=== PATIENT | female | born 2000 | race American Indian/Alaskan Native ===

== ENCOUNTER 2021-06-13 13:10 | Emergency (ER) | payer OTHER ==
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
[2021-06-13 18:43] VITALS: BP 114/63
== END 2021-06-13 18:47 | disposition home or self-care (01) ==
LOC: ED 13:10
DX: R04.0 Epistaxis (principal); M79.662 Pain in left lower leg; M25.571 Pain in right ankle and joints of right foot; V49.49XA Driver injured in collision with other motor vehicles in traffic accident, initial encounter; Y93.89 Activity, other specified; Y92.89 Other specified places as the place of occurrence of the external cause; Y99.8 Other external cause status
CPT/HCPCS: 99283